=== PATIENT | female | born 1980 | race Caucasian/White ===

== ENCOUNTER 2016-07-01 10:29 | Emergency (ER) | payer OTHER | END 2016-07-01 12:26 | disposition home or self-care (01) | LOC: ER 10:29 | DX: M54.6 Pain in thoracic spine (principal); E66.9 Obesity, unspecified; E78.5 Hyperlipidemia, unspecified; K21.9 Gastro-esophageal reflux disease without esophagitis; Z90.710 Acquired absence of both cervix and uterus; Z90.49 Acquired absence of other specified parts of digestive tract; Z79.899 Other long term (current) drug therapy; Z88.5 Allergy status to narcotic agent ==

== ENCOUNTER 2016-10-25 10:41 | Emergency (ER) | payer OTHER | END 2016-10-25 11:11 | disposition home or self-care (01) | LOC: ER 10:41 | DX: S39.012A Strain of muscle, fascia and tendon of lower back, initial encounter (principal); K21.9 Gastro-esophageal reflux disease without esophagitis; J44.9 Chronic obstructive pulmonary disease, unspecified; E78.5 Hyperlipidemia, unspecified; Z90.49 Acquired absence of other specified parts of digestive tract; Z87.891 Personal history of nicotine dependence; Z88.5 Allergy status to narcotic agent; X50.0XXA Overexertion from strenuous movement or load, initial encounter ==